=== PATIENT | male | born 1935 | race Two or more races ===

== ENCOUNTER 2023-06-14 14:29 | Emergency (ER) | payer OTHER ==
[~2023-06-14] VITALS: Ht 162.6 cm; Wt 97.5 kg
[2023-06-14] MEDS ORDERED: ELIQUIS5 MG (14:47)
[2023-06-14] MEDS ORDERED: TOPROL XL100 M1 (14:47)
[2023-06-14 18:12] LABS: HEMATOCRIT 36.3 % (39.0-48.0); HEMOGLOBIN 11.9 g/dL (13-16.00); MEAN CELL VOLUME 81.5 fL (80.0-100.00); MEAN CORPUSCULAR HEMOGLOBIN 26.7 pg (27.00-32.0); MEAN CORPUSCULAR HGB CONC 32.7 g/dl (32.0-36.0); PLATELET COUNT 143 K/uL (150-450); RED BLOOD COUNT 4.46 M/uL (4.00-6.00); RED CELL DISTRIBUTION WIDTH 18.4 % (11.5-14.5)
[2023-06-14 19:19] LABS: BILIRUBIN TOTAL 1.65 mg/dL (0.3-1.2); CALCIUM 9.4 mg/dL (8.5-10.1); CREATININE SERUM 2.17 mg/dL (0.70-1.30); GFR 28.98; GLOBULINA 4.8 G/DL (2.4-3.5); POTASSIUM 3.99 mEq/L (3.5-5.1); TOTAL PROTEIN 7.8 gm/dL (6.4-8.2)
[2023-06-14 20:01] LABS: PH,URINE 5.5 (5.0-8.0); URINE APPEARANCE Clear; URINE BILIRRUBIN Negative (NEGATIVE); URINE BLOOD Small; URINE COLOR Yellow; URINE GLUCOSE Negative (NEGATIVE); URINE LEUKOCYTE Negative; URINE NITRATE Negative
[2023-06-14 20:39] LABS: URINE BACTERIA 27.7 uL (0.0-1933); URINE EPITHELIAL CELLS 8.3 uL (0.0-38.8); URINE RBC 5.4 uL (0.0-20.8); URINE WBC 2.6 uL (0.0-23.2)
[2023-06-14 20:40] LABS: URINE PROTEIN 100 (NEGATIVE)
== END 2023-06-14 23:26 | disposition home or self-care (01) ==
LOC: ER 14:29
DX: K43.9 Ventral hernia without obstruction or gangrene (principal); K59.00 Constipation, unspecified; J90 Pleural effusion, not elsewhere classified; I10 Essential (primary) hypertension